=== PATIENT | male | born 1975 | race American Indian/Alaskan Native ===

== ENCOUNTER 2017-12-20 19:08 | Emergency (ER) | payer BC, OTHER ==
[2017-12-20] MEDS ORDERED: TORADOL IM ONE (21:09)
[2017-12-20] MEDS ORDERED: CATAPRES PO ONE (21:09)
--- NOTE | 2017-12-20 21:31 | Emergency Department Report ---
Chief Complaint: Extremity Injury, Lower Stated Complaint: rIGHT KNEE PAIN Time Seen by Provider: 12/20/17 20:51 - HPI History of Present Illness: The patient is a 42-year-old male presents for evaluation of right knee pain. The patient states that he injured his right knee 6 days ago while landing from exhibited line in [facility]. He reports moderate in severity pain since the incident, aching in quality, exacerbated with ablation weightbearing, and improved with rest. He denies injury elsewhere, paresthesias, motor weakness in the leg or foot, puncture wound, chills, night sweats, fever. - Exam Vital Signs: Vital Signs 12/20/17 19:29 Temperature 98.5 F Pulse Rate 88 Respiratory 16 Rate Blood Pressure 158/108 O2 Sat by Pulse 96 Oximetry MSE screening note: Focused history and physical exam performed. Due to findings the following was ordered: ED Medical Decision Making - Medical Decision Making X-ray of the right knee was ordered. The patient is given pain medicine. ED Disposition for MSE Condition: Stable Referrals: PRIMARY CARE, [Primary Care Provider] - 3-5 Days
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
[2017-12-20 23:10] VITALS: BP 156/98
--- NOTE | 2017-12-21 00:01 | XRay Report ---
FINAL REPORT EXAM: XR KNEE 1-2V RT HISTORY: right knee swelling and pain TECHNIQUE: AP and lateral views of the right knee were submitted. FINDINGS: All 3 compartments are well maintained. There is no evidence of fracture or joint effusion. There is metallic BB in the ventral soft tissues of the lower thigh laterally. IMPRESSION: No acute process identified.
== END 2017-12-21 00:20 | disposition home or self-care (01) ==
LOC: ED 19:08
DX: M25.561 Pain in right knee (principal); I10 Essential (primary) hypertension; K21.9 Gastro-esophageal reflux disease without esophagitis; G43.909 Migraine, unspecified, not intractable, without status migrainosus; F17.200 Nicotine dependence, unspecified, uncomplicated
CPT/HCPCS: 73560; 96372; 99283; J1885